=== PATIENT | female | born 1985 | race Caucasian/White ===

== ENCOUNTER 2019-05-11 01:04 | Emergency (ER) | payer BC ==
[~2019-05-11] VITALS: Ht 165.1 cm; Wt 52.0 kg
[~2019-05-11 01:04] MED LIST: IBUP-1223 PO; OXYC-302 PO; OXYC1TAB7 PO
[2019-05-11 01:16] VITALS: BP 119/72
--- NOTE | 2019-05-11 01:58 | NUR ---
REPORT GIVEN TO KARY WEBSTER
[2019-05-11] MEDS ORDERED: CEFTRIAXONE 1,000 MG IM ONE (02:00)
[2019-05-11] MEDS ORDERED: CEFTRIAXONE 1,000 MG ONE (02:07)
== END 2019-05-11 02:49 | disposition home or self-care (01) ==
LOC: ED 02:27
DX: N30.00 Acute cystitis without hematuria (principal); Z90.89 Acquired absence of other organs; Z88.2 Allergy status to sulfonamides; Z88.8 Allergy status to other drugs, medicaments and biological substances; Z88.3 Allergy status to other anti-infective agents
CPT/HCPCS: 96372; 99283; J0696